=== PATIENT | male | born 2000 | race Caucasian/White ===

== ENCOUNTER 2018-03-04 23:58 | Emergency (ER) | payer BC ==
[2018-03-05 00:05] VITALS: BP 140/61
[2018-03-05] MEDS ORDERED: traMADol TAB* 50 MG PO ONE (01:25)
[2018-03-05] MEDS ORDERED: Ondansetron ODT TAB* 4 MG SL ONE (01:26)
--- NOTE | 2018-03-05 02:34 | ED ---
Chary Huston Thomas, scribed for Cliff Steele MD on 03/05/18 at 0130 . Head Injury - HPI Summary HPI Summary: The patient is a 17 year old male complaining of head pain, nausea, and lightheadedness status post striking the left side of his head on a brick wall yesterday at 21:00 while wrestling with another individual. He had loss of consciousness for a few seconds. - History Of Current Complaint Chief Complaint: EDHeadInjury Stated Complaint: HEAD INJURY Time Seen by Provider: 03/05/18 01:09 Hx Obtained From: Patient Mechanism Of Injury: Other - Striking head on wall Onset/Duration: Still Present Onset of Pain: Immediate Severity Initially: Moderate Pain Intensity: 5 Pain Scale Used: 0-10 Numeric Location of Head Injury: Other: - left side of head Aggravating Factor(s): Other: - Nothing Alleviating Factor(s): Other: - Nothing Associated Signs And Symptoms: LOC (Time In Secs./Mins/Hrs) - a few seconds, Nausea, Other: - Head pain, lightheadedness - Allergies/Home Medications Allergies/Adverse Reactions: Allergies Allergy/AdvReac Type Severity Reaction Status Date / Time No Known Allergies Allergy Verified 03/05/18 00:01 PMH/Surg Hx/FS Hx/Imm Hx Endocrine/Hematology History: Denies: Hx Diabetes Cardiovascular History: Denies: Hx Hypertension Infectious Disease History: No Infectious Disease History: Denies: Traveled Outside the [place] in Last 30 Days - Family History Known Family History: Positive: Other - Patient denies relevant FHx - Social History Occupation: Student Lives: Dormitory/Roommates Alcohol Use: None Substance Use Type: Reports: None Smoking Status (MU): Never Smoked Tobacco Review of Systems Negative: Fever Positive: Nausea Neurological: Other - Head pain, lightheadedness, LOC All Other Systems Reviewed And Are Negative: Yes Physical Exam - Summary Physical Exam Summary: VITAL SIGNS: Reviewed. GENERAL: Patient is a well-developed and nourished male who is lying comfortable in the stretcher. Patient is not in any acute respiratory distress. HEAD AND FACE: No signs of trauma. No ecchymosis, hematomas or skull depressions. No sinus tenderness. EYES: PERRLA, EOMI x 2, No injected conjunctiva, no nystagmus. EARS: Hearing grossly intact. Ear canals and tympanic membranes are within normal limits. MOUTH: Oropharynx within normal limits. NECK: Supple, trachea is midline, no adenopathy, no JVD, no carotid bruit, no c- spine tenderness, neck with full ROM. CHEST: Symmetric, no tenderness at palpation LUNGS: Clear to auscultation bilaterally. No wheezing or crackles. CVS: Regular rate and rhythm, S1 and S2 present, no murmurs or gallops appreciated. ABDOMEN: Soft, non-tender. No signs of distention. No rebound no guarding, and no masses palpated. Bowel sounds are normal. EXTREMITIES: FROM in all major joints, no edema, no cyanosis or clubbing. NEURO: Alert and oriented x 3. No acute neurological deficits. Speech is normal and follows commands. SKIN: Dry and warm Triage Information Reviewed: Yes Vital Signs On Initial Exam: Initial Vitals Temp Pulse Resp BP Pulse Ox 97.6 F 85 16 140/61 97 03/04/18 23:59 03/04/18 23:59 03/04/18 23:59 03/04/18 23:59 03/04/18 23:59 Vital Signs Reviewed: Yes Diagnostics - Vital Signs Vital Signs Temp Pulse Resp BP Pulse Ox 03/04/18 23:59 97.6 F 85 16 140/61 97 - Laboratory Lab Statement: Any lab studies that have been ordered have been reviewed, and results considered in the medical decision making process. - CT CT Brain CT Interpretation: No Acute Changes - Normal brain. No acute intracranial abnormality. Osseous strucutre are intact. Dr. Steele has reviewed this report. CT Interpretation Completed By: Radiologist Re-Evaluation - Re-Evaluation First Eval Re-Evaluation Time: 02:23 Comment: Results discussed. Patient will be discharged home. Head Injury Course/Dx Assessment/Plan: The patient is a 17 year old male complaining of head pain, nausea, and lightheadedness status post striking the left side of his head on a brick wall yesterday at 21:00 while wrestling with another individual. He had loss of consciousness for a few seconds. In the ED course the patient was given Zofran and tramadol. CT Brain shows normal brain. No acute intracranial abnormality. No hemorrhage. Osseous structures are intact. The patient will be discharged home with diagnosis of head injury. I recommended acetaminophen for the pain. - Diagnoses Provider Diagnoses: Head injury Discharge - Sign-Out/Discharge Documenting (check all that apply): Discharge - Discharge Plan Condition: Stable Disposition: HOME Patient Education Materials: Head Injury (ED) Referrals: [facility] - Gonzalo ARCHIBALD [Medical Doctor] - Additional Instructions: Follow up at [facility] in two days. I recommend Tylenol/acetaminophen for the pain. Return to the emergency department for any new or worsening symptoms. The documentation as recorded by the Chary rosales Thomas accurately reflects the service I personally performed and the decisions made by , Cliff Steele MD.
--- NOTE | 2018-03-05 07:58 | RAD ---
INDICATION: Trauma to left calvarium, now with dizziness and nausea. COMPARISON: None. TECHNIQUE: Contiguous axial sections of the brain were obtained from the skull base to the vertex without contrast. FINDINGS: The ventricles, cisterns and sulci are within normal limits. The stuart-white matter differentiation is adequately maintained and there is no sulcal effacement. No significant focal abnormality or mass effect is present. There is no evidence for intracranial hemorrhage. No significant focal osseous abnormality is present. The visualized portion of the paranasal sinuses appear clear. The mastoid air cells are well aerated bilaterally. IMPRESSION: Normal CT of the brain.
== END 2018-03-05 02:29 | disposition home or self-care (01) ==
LOC: ED 23:58
DX: S06.9X1A Unspecified intracranial injury with loss of consciousness of 30 minutes or less, initial encounter (principal); R51 Headache; R42 Dizziness and giddiness; W22.01XA Walked into wall, initial encounter; Y92.9 Unspecified place or not applicable
CPT/HCPCS: 70450; 99282; A9270-GY